=== PATIENT | male | born 1935 | race Caucasian/White ===

== ENCOUNTER 2016-09-29 10:39 | Emergency (ER) | payer MEDICARE, OTHER ==
--- NOTE | 2016-09-29 11:07 | Emergency Department Record ---
History of Present Illness - General Chief Complaint: Fall Injury Stated Complaint: FALL Time Seen by Provider: 09/29/16 11:06 Source: Patient, Family Mode of Arrival: EMS Limitations: No limitations - History of Present Illness Initial Comments: The patient is here due to becoming weak today and falling and being found on the floor by his neighbor at 7 and 9 am. He denies any injury or pain. The patient has a hx of recent leg edema and was recently started on Lasix. There has been no reported CP, SOB, SAPNA or fevers. The patient did have some SAPNA a few days ago but that has resolved. [facility] also was [facility] and they did start him on Lasix due to his swollen legs. The patient may also have had some blood in his stools recently but the patient is unclear about it. MD Complaint: Fall Onset/Timin -: Hour(s) Fall From: Standing When Fall Occurred: 4-6 hours [employer] Fall Witnessed: No Place Fall Occurred: Home Loss of Consciousness: None Prolonged Down Time?: Yes Symptoms Prior to Fall: None Context: History of frequent falls Associated Symptoms: Denies - [place] Coma Scale Eye Response: (4) Open spontaneously Motor Response: (6) Obeys commands Verbal Response: (5) Oriented [place] Total: 15 - Related Data Home Medications Medication Instructions Recorded Confirmed Last Taken Furosemide [Lasix] 20 mg PO DAILY 09/29/16 09/29/16 09/29/16 Silver Sulfadiazine [Ssd] 1 apply TP TID 09/29/16 09/29/16 09/29/16 Allergies Allergy/AdvReac Type Severity Reaction Status Date / Time No Known Drug Allergies Allergy Verified 09/29/16 10:46 Travel Screening - Travel/Exposure Within Last 30 Days Have you traveled within the last 30 days?: No - Travel/Exposure Within Last Year Have you traveled outside the [place] in the last year?: No - Additonal Travel Details Have you been exposed to anyone with a communicable illness?: No - Travel Symptoms Symptom Screening: None Review of Systems Constitutional: Denies: Chills, Fever Eyes: Denies: Eye discharge ENT: Denies: Congestion Respiratory: Denies: Cough, Dyspnea Cardiovascular: Denies: Arrhythmia, Chest pain Endocrine: Reports: Fatigue Gastrointestinal: Denies: Diarrhea, Vomiting Genitourinary: Denies: Dysuria Musculoskeletal: Denies: Arthralgia Skin: Denies: Bruising Past Medical History - SOCIAL HISTORY Smoking Status: Current every day smoker Alcohol Use: Occassional Drug Use: None - RESPIRATORY Hx Respiratory Disorders: No - CARDIOVASCULAR Hx Cardio Disorders: No - NEURO Hx Neuro Disorders: No - GI Hx GI Disorders: No - Hx Genitourinary Disorders: No - ENDOCRINE Hx Endocrine Disorders: No - MUSCULOSKELETAL Hx Musculoskeletal Disorders: No - PSYCH Hx Psych Problems: No - HEMATOLOGY/ONCOLOGY Hx Hematology/Oncology Disorders: Yes Comment:: left ear Family Medical History Any Significant Family History?: No Physical Exam - General General Appearance: Alert, Oriented x3, Cooperative, No acute distress - Head Head exam: Atraumatic, Normocephalic, Normal inspection - Eye Eye exam: Normal appearance - ENT ENT exam: Other (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 negative: Normal exam - Neck Neck exam: Normal inspection, Full ROM. negative: Tenderness - Respiratory Respiratory exam: Normal lung sounds bilaterally. negative: Respiratory distress - Cardiovascular Cardiovascular Exam: Irregular rhythm. negative: Regular rate, Normal rhythm - GI/Abdominal GI/Abdominal exam: Soft, Normal bowel sounds. negative: Tenderness - Extremities Extremities exam: Pedal edema. negative: Normal inspection Course Vital Signs 09/29/16 10:48 Temperature 97.4 F L Pulse Rate 82 Respiratory 20 Rate Blood Pressure 145/78 Pulse Ox 94 L - Reevaluation(s) Reevaluation #1: The patient is doing much better at this time. His HR has improved on the Cardizem and is below 100 and he denies any CP or SOB. I did discuss the case with the patient and his son and did recommend hospital transfer. The patient would like to go to [facility] but we did contact the [facility] and they are not able to take care of the patient. I then did discuss the [place] [facility] [place]. 09/29/16 13:20 Reevaluation #2: The patient is doing a lot better at this time. His HR is 100-110 and he has urinated twice with a total of 700cc of urine out. 09/29/16 14:42 Medical Decision Making - Data Complexity MDM Data: Labs Ordered and/or Reviewed, X-Ray Ordered and/or Reviewed, EKG Ordered and/or Reviewed - Lab Data Result diagrams: 09/29/16 11:40 09/29/16 11:40 - EKG Data -: EKG Interpreted by Me EKG: Abnormal EKG (New Onset A fib at 150's) - Radiology Data Radiology results: Report reviewed (CXR: The L side of the chest is tamia out completely. Head CT: No acute changes in the brain but chronic L mastoid changes. Cervical spine: No acute changes.) Disposition Disposition: Transfer Clinical Impression: New onset a-fib Disposition: Acute Care Hospital [place] [facility] [place] For Transfer: [place] Accepting Physician: Briana Time Discussed w/Accepting Physician: 13:35 Condition: (2) Stable Forms: Patient Portal Access Time of Disposition: 13:35
[2016-09-29] MEDS: 0.9 % SODIUM CHLORIDE 1,000 ML BAG IV ONE (11:27)
[2016-09-29 11:52] LABS: HEMATOCRIT 42.9 % (42.0-52.0); HEMOGLOBIN 13.8 gm/dl (14.0-18.0); MEAN CELL VOLUME 97.5 fl (81-97); MEAN CORPUSCULAR HGB CONC 32.2 g/dl (32-36); MEAN PLATELET VOLUME 11.9 fl (7.4-10.4); PLATELET COUNT 106 K/uL (130-400); RED CELL DISTRIBUTION WIDTH 16.3 % (11.5-14.5); WHITE BLOOD COUNT W/O DIFF 10.9 K/uL (4.2-12.2)
[2016-09-29 11:55] LABS: MEAN CORPUSCULAR HEMOGLOBIN 31.3 pg (27-33)
[2016-09-29 12:06] LABS: ALBUMIN 3.6 gm/dL (3.5-5.0); ALKALINE PHOSPHATASE 108 U/L (38-126); ALT/SGPT 35 U/L (21-72); ANION GAP 14.3 (7-16); AST/SGOT 34 U/L (17-59); BILIRUBIN,TOTAL 2.71 mg/dL (0.2-1.3); BLOOD UREA NITROGEN 28 mg/dL (9-20); CARBON DIOXIDE 27.7 mmol/L (22-30); CREATININE 1.2 mg/dL (0.66-1.25); EST GLOMERULAR FILTRATION RATE > 60 ml/min; GLUCOSE,RANDOM 119 mg/dL (70-110); INR 1.07; PARTIAL THROMBOPLASTIN TIME 26.9 SECONDS (24.5-39.1); PROTHROMBIN TIME (PATIENT) 12.1 SECONDS (9.5-12.1); TOTAL PROTEIN 7.1 gm/dL (6.3-8.2)
[2016-09-29] MEDS: FUROSEMIDE IV 40MG/4ML VIAL IVP ONE (13:09)
[2016-09-29] MEDS: DILTIAZEM HCL 125 MG in 0.9 % SODIUM CHLORIDE 100ML 100 ML IV SCH (13:10)
[2016-09-29] MEDS: DILTIAZEM 25MG/5ML VIAL IV ONE (13:10)
[2016-09-29 13:42] LABS: URINE APPEARANCE CLEAR; URINE BILIRUBIN NEGATIVE (NEGATIVE); URINE BLOOD NEGATIVE (NEGATIVE); URINE COLOR YELLOW; URINE GLUCOSE (UA) NEGATIVE (NEGATIVE); URINE KETONE NEGATIVE (NEGATIVE); URINE LEUKOCYTE ESTERASE NEGATIVE (NEGATIVE); URINE NITRITE NEGATIVE (NEGATIVE); URINE PROTEIN NEGATIVE (NEGATIVE)
--- NOTE | 2016-10-01 13:44 | RADIOLOGY REPORT ---
DATE: 09/29/2016 at 12:32 p.m. EXAM: CHEST, TWO VIEWS. HISTORY: Fall this morning. TECHNIQUE: Upright AP and lateral views of the chest were obtained. COMPARISON: None. FINDINGS: There is complete opacification of the left hemithorax of indeterminate etiology. Diagnostic considerations include large pleural effusion or diffuse airspace disease. A combination of these two could also be present. Mild patchy opacities in the perihilar right lung consistent with atelectasis, infiltrate, or edema. The right pleural space appears clear. Evaluation of the heart size is limited as the left heart border and left mediastinal border are obscured. Mild pulmonary venous hypertension is possible. There are degenerative changes scattered throughout the visualized spine. IMPRESSION: 1. COMPLETE OPACIFICATION OF THE LEFT HEMITHORAX CONSISTENT WITH PLEURAL EFFUSION AND/OR AIRSPACE DISEASE. 2. MILD RIGHT PERIHILAR OPACITY CONSISTENT WITH ATELECTASIS, INFILTRATE, OR EDEMA. 3. MILD PULMONARY VENOUS HYPERTENSION POSSIBLE. JOB NUMBER: [id number] MTDD
--- NOTE | 2016-10-01 13:55 | CT SCAN REPORT ---
DATE: 09/29/2016 at 12:12 p.m. EXAM: CT OF THE HEAD WITHOUT CONTRAST. HISTORY: Fall. Possible head trauma. TECHNIQUE: Routine noncontrast CT examination of the head is performed. COMPARISON: No prior imaging of the head available for comparison. Same-day noncontrast CT of the cervical spine. FINDINGS: There is mild dilatation of the subarachnoid spaces with borderline ventriculomegaly. Mild periventricular and subcortical white matter lucencies are noted in each cerebral hemisphere. No other area of abnormally increased or decreased attenuation is noted throughout the brain substance. No abnormal extra-axial fluid collection is seen. There is mild mucosal thickening and debris within the right maxillary sinus. The visualized paranasal sinuses and mastoid air cells appear clear. There is chronic-appearing deformity of the lateral margin of the left mastoid, likely postsurgical. No acute skull fracture. IMPRESSION: 1. NO CT EVIDENCE OF ACUTE MAJOR VESSEL INFARCT, INTRACRANIAL HEMORRHAGE, NOR MASS. 2. MILD ATROPHY. MILD WHITE MATTER LUCENCIES IN EACH CEREBRAL HEMISPHERE ARE NONSPECIFIC BUT LIKELY AREAS OF CHRONIC SMALL-VESSEL ISCHEMIA. 3. ACUTE ON CHRONIC INFLAMMATORY CHANGES WITHIN THE RIGHT MAXILLARY SINUS. CHRONIC-APPEARING DEFORMITY OF THE LATERAL MARGIN OF THE LEFT MASTOID. JOB NUMBER: [id number] [facility]
--- NOTE | 2016-10-01 14:47 | CT SCAN REPORT ---
DATE: 09/29/2016 at 12:19 p.m. EXAM: CT OF THE CERVICAL SPINE WITHOUT CONTRAST. HISTORY: Fall times two. Possible head and neck trauma. TECHNIQUE: Thin-collimation helical CT examination of the cervical spine is performed without intravenous contrast. Coronal and sagittal reformatted images are generated and reviewed. COMPARISON: No prior imaging of the cervical spine available for comparison. Same-day noncontrast CT of the head. FINDINGS: There is incomplete osseus fusion of the posterior arch of C1 slightly right of midline. This has a chronic appearance and is likely developmental. The cervical vertebral bodies are grossly normal in alignment and height. No acute fracture, destructive bone lesion, nor prevertebral soft tissue swelling is seen. 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 No other evidence of osseus cervical spinal stenosis. Multilevel facet arthropathy is present most pronounced on the right at the mid to upper levels. Multilevel bilateral neural foraminal narrowing is present due to uncovertebral joint and facet degenerative changes most pronounced on the right at the C2-C3 and C3-C4 levels where the narrowing is at least moderate in degree. There is opacification of a single inferior left mastoid air cell consistent with retained secretions or mild inflammation. There is chronic-appearing deformity of the lateral margin of the mastoid portion of the left temporal bone. Inflammatory changes are noted within the right maxillary sinus. There is evidence of a large left pleural effusion, and there is consolidation/ mass of the visualized left lung apex. Diagnostic considerations include malignancy, atelectasis, or lobar pneumonia. There is dependent airspace disease in the right upper lung. Right apical lung scarring is present. There is a small, noncalcified nodule in the medial right lung apex measuring 4.4 mm. IMPRESSION: 1. NO CONVINCING CT EVIDENCE OF ACUTE FRACTURE, SUBLUXATION, OR PREVERTEBRAL SOFT TISSUE SWELLING INVOLVING THE CERVICAL SPINE. 2. MULTILEVEL DEGENERATIVE CHANGES, DISCUSSED IN DETAIL ABOVE. 3. INCOMPLETELY IMAGED LARGE LEFT PLEURAL EFFUSION AND OPACIFICATION OF THE VISUALIZED LEFT LUNG APEX, DISCUSSED ABOVE. 4. 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 NONCALCIFIED, INDETERMINATE NODULE IN THE MEDIAL RIGHT LUNG APEX MEASURING 4.4 MM. 5. ACUTE ON CHRONIC INFLAMMATORY CHANGES IN THE RIGHT MAXILLARY SINUS. OPACIFICATION OF A SINGLE INFERIOR LEFT MASTOID AIR CELL CONSISTENT WITH RETAINED SECRETIONS OR MILD INFLAMMATION. JOB NUMBER: [id number] MTDD
== END 2016-09-29 14:59 | disposition short-term general hospital (02) ==
LOC: ER 10:39
DX: I48.91 Unspecified atrial fibrillation (principal); R53.1 Weakness; M50.321 Other cervical disc degeneration at C4-C5 level; R29.6 Repeated falls; R00.0 Tachycardia, unspecified; F17.210 Nicotine dependence, cigarettes, uncomplicated
CPT/HCPCS: 70450; 71020; 72125; 80048; 80076; 81003; 82550; 83880; 84484; 85027; 85610; 85730; 93005; 93010; 96365; 96374; 96375; 99285; J1940; J7030